=== PATIENT | female | born 1960 | race Caucasian/White ===

== ENCOUNTER → 2016-06-05 | Outpatient (CLI) | payer BC ==
[2016-06-05 19:31] LABS: ALBUMIN/GLOBULIN RATIO 1.38 (1.00-1.93); ALKALINE PHOSPHATASE 107 U/L (45-117); ALT/SGPT 33 U/L (12-78); ANION GAP 6 MEQ/L (8-16); AST/SGOT 15 U/L (15-37); BILIRUBIN,TOTAL 0.4 MG/DL (0.2-1.0); BLOOD UREA NITROGEN 15 MG/DL (7-18); CALCIUM LEVEL 9.5 MG/DL (8.5-10.1); CARBON DIOXIDE LEVEL 27 MEQ/L (21-32); CHLORIDE LEVEL 110 MEQ/L (98-107); CHOLESTEROL LEVEL 172 MG/DL (<200); CREATININE FOR GFR 0.75 MG/DL (0.55-1.02); GLOMERULAR FILTRATION RATE > 60.0 (>51); GLUCOSE, FASTING 101 MG/DL (70-105); POTASSIUM SERUM 4.3 MEQ/L (3.5-5.1); SODIUM LEVEL 143 MEQ/L (136-145); TOTAL PROTEIN 6.9 GM/DL (6.4-8.2); TRIGLYCERIDES LEVEL 109 MG/DL (<150)
[2016-06-05 19:45] LABS: MEAN CORPUSCULAR HGB CONC 34.6 g/dl (32.0-36.5); MEAN CORPUSCULAR VOLUME 89.7 fl (80.0-96.0); RED CELL DISTRIBUTION WIDTH 12.3 % (11.5-14.5); WHITE BLOOD COUNT 6.7 K/mm3 (4.0-10.0)
== END ==
LOC: M WUC 09:44
PROVIDERS: ATTEND Nurse Practitioner Family
DX: I10 Essential (primary) hypertension (principal)

== ENCOUNTER → 2016-09-23 | Outpatient (CLI) | payer BC ==
[~2016-09-23] VITALS: Ht 165.1 cm; Wt 90.7 kg
[~2016-09-23] MED LIST: LIDOCAINE 2% INJ 100 MG/5 ML SDV (FOR ANES.) As Ordered ONE; METO50TA2 PO; NS 1,000 ML IV ONE; OMEP40CA2 PO; PROPOFOL 500 MG/50 ML VIAL As Ordered ONE; SIMV40TA2 PO
--- NOTE | 2016-09-23 12:41 | ROOR ---
Patient Name: Kristal Lara Procedure Date: 09/23/2016 12:23 PM Date of : 1960 Age: 56 Room: [facility] Gender: Female Note Status: Finalized Procedure: Upper GI endoscopy Indications: Heartburn Providers: Rolf VIERA MD Referring MD: Dorothy Parker MD Requesting Provider: Medicines: Monitored Anesthesia Care Complications: No immediate complications. Procedure: Pre-Anesthesia Assessment: - The heart rate, respiratory rate, oxygen saturations, blood pressure, adequacy of pulmonary ventilation, and response to care were monitored throughout the procedure. The Endoscope was introduced through the mouth, and advanced to the second part of duodenum. The upper GI endoscopy was accomplished without difficulty. The patient tolerated the procedure well. Findings: The esophagus and gastroesophageal junction were examined with white light and narrow band imaging (NBI) from a forward view and retroflexed position. There were esophageal mucosal changes suspicious for long-segment Barnard's esophagus. These changes involved the mucosa at the upper extent of the gastric folds (36 cm from the incisors) extending to the Z-line. Circumferential salmon-colored mucosa was present from 30 to 35 cm. The maximum longitudinal extent of these esophageal mucosal changes was 5 cm in length. Mucosa was biopsied with a cold forceps for histology randomly in the lower third of the esophagus and from 30 to 36 cm from the incisors. A total of 4 specimen bottles were sent to pathology. A small hiatal hernia was present. The entire examined stomach was normal. The examined duodenum was normal. Impression: - Esophageal mucosal changes suspicious for long-segment Barnard's esophagus. Biopsied. - Small hiatal hernia. - Normal stomach. - Normal examined duodenum. Recommendation: - Use Prilosec (omeprazole) 40 mg PO BID indefinitely. - Repeat upper endoscopy in 3 years for surveillance. Rolf Viera MD Rolf VIERA MD 09/23/2016 12:41:22 PM This report has been signed electronically. Number of Addenda: 0 Note Initiated On: 09/23/2016 12:23 PM Estimated Blood Loss: Estimated blood loss: none.
--- NOTE | 2016-09-23 13:01 | ROOR ---
Patient Name: Kristal Lara Procedure Date: 09/23/2016 12:24 PM Date of : 1960 Age: 56 Room: [facility] Gender: Female Note Status: Finalized Procedure: Colonoscopy Indications: Screening for colorectal malignant neoplasm Providers: Rolf VIERA MD Referring MD: Dorothy Parker MD Requesting Provider: Medicines: Monitored Anesthesia Care Complications: No immediate complications. Procedure: Pre-Anesthesia Assessment: - The heart rate, respiratory rate, oxygen saturations, blood pressure, adequacy of pulmonary ventilation, and response to care were monitored throughout the procedure. The Colonoscope was introduced through the anus and advanced to the cecum, identified by appendiceal orifice and ileocecal valve. The colonoscopy was performed without difficulty. The patient tolerated the procedure well. The quality of the bowel preparation was good. Findings: The perianal and digital rectal examinations were normal. (Exam: Complete, Prep: Good or Excellent.) A 8 mm polyp was found in the appendiceal orifice. The polyp was carpet-like. The polyp was removed with a piecemeal technique using a cold snare. Polyp resection was incomplete, and the resected tissue was partially retrieved. A 5 mm polyp was found in the cecum. The polyp was sessile. The polyp was removed with a cold snare. Resection and retrieval were complete. Internal hemorrhoids were found during retroflexion. The hemorrhoids were medium-sized. The exam was otherwise without abnormality on direct and retroflexion views. Impression: - One 8 mm polyp at the appendiceal orifice, removed piecemeal using a cold snare. Polyp resection was incomplete, and the resected tissue was partially retrieved. - One 5 mm polyp in the cecum, removed with a cold snare. Resected and retrieved. - Internal hemorrhoids. - The examination was otherwise normal on direct and retroflexion views. Recommendation: - Telephone endoscopist for pathology results in 2 weeks. - If the polyp within the appendiceal orifice is adenomatous (precancerous), then will consider a referral to a surgeon to remove the appendix (along with surrounding cecal floor). If the polyp is hyperplastic (not precancerous), then nothing else needs to be done. Rolf Viera MD Rolf VIERA MD 09/23/2016 1:00:42 PM This report has been signed electronically. Number of Addenda: 0 Note Initiated On: 09/23/2016 12:24 PM Estimated Blood Loss: Estimated blood loss: none.
[2016-09-23 13:15] VITALS: BP 147/90
== END | disposition home or self-care (01) ==
LOC: M OPP 10:45
PROVIDERS: ATTEND Internal Medicine Gastroenterology
DX: Z12.11 Encounter for screening for malignant neoplasm of colon (principal); D12.1 Benign neoplasm of appendix; D12.0 Benign neoplasm of cecum; K64.8 Other hemorrhoids; R12 Heartburn; K22.8 Other specified diseases of esophagus; K44.9 Diaphragmatic hernia without obstruction or gangrene; M19.90 Unspecified osteoarthritis, unspecified site; E78.5 Hyperlipidemia, unspecified; D49.7 Neoplasm of unspecified behavior of endocrine glands and other parts of nervous system; Z78.0 Asymptomatic menopausal state; Z87.891 Personal history of nicotine dependence; Z79.899 Other long term (current) drug therapy

== ENCOUNTER → 2016-11-17 | Outpatient (REF) | payer BC ==
[~2016-11-17] MED LIST changes: -LIDOCAINE 2% INJ 100 MG/5 ML SDV (FOR ANES.) As Ordered ONE; -METO50TA2 PO; +METO50TA7 PO; +NORCOTAB PO; -NS 1,000 ML IV ONE; -PROPOFOL 500 MG/50 ML VIAL As Ordered ONE
[2016-11-17 12:55] LABS: ANION GAP 7 MEQ/L (8-16); BLOOD UREA NITROGEN 16 MG/DL (7-18); CALCIUM LEVEL 10.1 MG/DL (8.5-10.1); CARBON DIOXIDE LEVEL 27 MEQ/L (21-32); CHLORIDE LEVEL 110 MEQ/L (98-107); CREATININE FOR GFR 0.72 MG/DL (0.55-1.02); GLOMERULAR FILTRATION RATE > 60.0 (>51); GLUCOSE, FASTING 90 MG/DL (70-105); SODIUM LEVEL 144 MEQ/L (136-145)
== END ==
LOC: M SFHCPLAZ 10:13
PROVIDERS: ATTEND Family Medicine
DX: I10 Essential (primary) hypertension (principal)

== ENCOUNTER → 2016-11-24 | Outpatient (CLI) | payer BC ==
--- NOTE | 2016-11-24 15:16 | REPMRS ---
Patient History The patient states she has not had a clinical breast exam in over a year. Patient is postmenopausal. No known family history of cancer. Benign cyst aspiration of the left breast, 2006. Digital Woman Screen Mammo: November 24, 2016 - Exam #: [id number] Bilateral CC and MLO view(s) were taken. Technologist: Jacquelyn Becerra, Technologist Prior study comparison: August 07, 2014, bilateral digital mammo screening bilat, performed at [facility]. January 02, 2007, digital woman screen mammo, performed at [facility]. FINDINGS: The breast tissue is heterogeneously dense. This may lower the sensitivity of mammography. There has been no change in the appearance of the mammogram from the prior studies. There is a moderate amount of residual fibroglandular tissue which is fairly symmetric. There is no interval development of dominant mass, areas of architectural distortion, or clustered microcalcification typical of malignancy. ASSESSMENT: BI-RADS/ACR category 1 mammogram. Negative. Recommendation Routine screening mammogram in 1 year (for women over age 40). This mammogram was interpreted with the aid of an FDA-approved computer-aided dectection system. Electronically Signed By: Abel Pérez MD 11/24/16 [id number]
== END ==
LOC: M WHC 13:35
PROVIDERS: ATTEND Family Medicine
DX: Z12.31 Encounter for screening mammogram for malignant neoplasm of breast (principal)

== ENCOUNTER 2016-12-21 14:38 | Day surgery (SDC) | payer BC ==
[~2016-12-21] VITALS: Ht 165.1 cm; Wt 90.7 kg
[2016-12-21] VITALS (7 sets, daily range): BP systolic 117–157; BP diastolic 67–87
[2016-12-21] MEDS: KETOROLAC 30 MG/ML VIAL (J1885) IV SCH ×2 (12:00→17:18)
[2016-12-21] MEDS: LR 1,000 ML IV SCH ×2 (12:00→17:17)
[~2016-12-21 14:38] MED LIST changes: +BUPIVACAINE/EPIN 0.25% 30 ML VIAL As Ordered ONE; +ERTAPENEM SODIUM 1 GM in NS MINI-BAG PLUS 50 ML IV ONE; +HYDROmorphone HCL 1 MG/ML SYRINGE (J1170) IV PRN; +HYDROmorphone HCL 2 MG/ML 1ML VIAL (J1170) As Ordered ONE; +LIDOCAINE 1% MDV 20ML VIAL SQ ONE; +LIDOCAINE 2% INJ 100 MG/5 ML SDV (FOR ANES.) As Ordered ONE; +LR 1,000 ML IV ONE; +LR 1,000 ML IV SCH; +MIDAZOLAM INJ 2 MG/2 ML VIAL (J2250) As Ordered ONE; +MORPHINE 2 MG/ML 1ML SYRINGE IV PRN; +NORCO, ANEXSIA 5/325MG TABLET (HYDROcodone/ACETAMINOPHEN) PO PRN; -NORCOTAB PO; +ONDANSETRON 4MG/2ML VIAL (J2405) IV PRN; +PERCOCET 5MG/325MG TAB As Ordered ONE; +PERCOCET 5MG/325MG TAB PO PRN; +PROPOFOL 200 MG/20 ML VIAL As Ordered ONE; +ROCURONIUM BROMIDE 50 MG/5 ML VIAL/SYRINGE As Ordered ONE; +dexameTHASONE 4 MG/ML 1ML VIAL (J1100) As Ordered ONE; +ePHEDrine SULFATE 25 MG/5 ML(5MG/ML) SYRINGE As Ordered ONE; +fentaNYL 100 MCG/2 ML INJECTION (J3010) IV PRN; +fentaNYL 250 MCG/5 ML INJECTION (J3010) As Ordered ONE
[2016-12-22] VITALS: BP 122/79
[2016-12-22] MEDS: KETOROLAC 30 MG/ML VIAL (J1885) IV SCH ×2 (00:50→06:53)
[2016-12-22 04:00] VITALS: BP 123/69
[2016-12-22 08:00] VITALS: BP 139/69
[2016-12-22] MEDS ORDERED: NORCOTAB PO (09:14)
--- NOTE | 2016-12-22 22:16 | ECGEPIP ---
Stationary ECG Study [facility] Test Date: 2016-12-21 Pat Name: SERGIO REDDY Department: Room: - Gender: F Rivet Sticker: GIOVANNY : 1960 Requested By: JANNETTE CARVALHO Order Number: [id number] Reading MD: Mark Dalton Measurements Intervals [place] Rate: 53 P: 37 IA: 199 QRS: 5 QRSD: 92 T: -7 QT: 409 QTc: 386 Interpretive Statements SINUS BRADYCARDIA NONSPECIFIC T-WAVE ABNORMALITY NO PRIOR TRACING IN THE SYSTEM Electronically Signed On 12-22-2016 22:15:53 EDT by Mark Dalton
--- NOTE | 2017-01-18 05:43 | RO ---
DATE OF PROCEDURE: 12/21/2016 PREOPERATIVE DIAGNOSIS: Adenomatous colonic polyp at the appendiceal orifice. 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 PROCEDURE: Laparoscopic appendectomy/partial cecectomy. SURGEON: Kiko Eason MD CASINO ACCOUNTANT: ANESTHESIA: General endotracheal anesthesia ESTIMATED BLOOD LOSS: Minimal. FLUIDS: Crystalloid. DESCRIPTION OF PROCEDURE: The patient was brought to the operating room and was given general anesthesia. After adequate anesthesia and preoperative antibiotics were given, the patient was prepped and draped in the usual sterile fashion. Next, a supraumbilical incision was made with skin knife. Electrocautery was used cut through dermis, underlying subcutaneous tissue down to the fascia itself, which was grasped with Madan clamps, elevated and a Veress needle placed into the abdominal cavity, insufflated to 15 mm of pressure. The suprapubic and left lower quadrant 5 mm trocars were placed. Once there was some adhesions taken down in this area as well as in the suprapubic area and along the right lateral abdomen, there was some adhesions that needed be taken down near the terminal ileum, and eventually after the terminal ileum was mobilized adequately I could then mobilize the cecum and the cecum was mobilized off the pelvic sidewall and the appendix was well visualized. The entire dissection did not mobilize the entire right colon as a typical right hemicolectomy would be performed given that this was in adenomatous polyp and not a dysplastic polyp and thus, the appendix was taken, first the mesentery of the appendix was taken with Harmonic scalpel all the way down to the base of the appendix taking care to make sure that a good deal of the cecum could be well visualized. Once the ileocecal valve was well visualized and I felt that I could take an adequate margin around the base of a palpable polyp at the base the appendix, at this time what I did was place the polyp on the appendiceal opening side and place a atraumatic grasper underneath the polyp on the cecal side. Taking care to remove that additional portion of the cecum and paralleling the ileocecal valve, I used an [place] green load 60 across the cecum in this area and a second load needed to be used to complete the resection of tissue. The staple line was intact and no bleeding, no leak and overall good margins could be palpated on the lesion itself. This was placed in an EndoCatch bag brought out through the periumbilical site. Next, the right lower quadrant was copiously irrigated until clear. This was evaluated again taking care to make sure that the ileocecal valve seemed to be open in this area and the staple line was closed, yet still off to the side of the ileocecal valve itself. Next, all trocars were removed under direct visualization. #0 Vicryl was used close the periumbilical site with two [id number] Ethibond sutures given that the site needed to be enlarged a little bit to get the appendix out through, and all incisions were closed with #4-0 Vicryl. Steri-Strips and a dry sterile dressing was applied. The patient was awakened, extubated, brought to the recovery room awake, alert, hemodynamically stable. Sponge and needle counts were correct times two.
== END 2016-12-22 10:50 | disposition home or self-care (01) ==
LOC: M PED 14:38 → M SDC 14:38
PROVIDERS: ATTEND Surgery
DX: D12.1 Benign neoplasm of appendix (principal); I10 Essential (primary) hypertension; E78.00 Pure hypercholesterolemia, unspecified; K21.9 Gastro-esophageal reflux disease without esophagitis; Z87.891 Personal history of nicotine dependence; Z79.899 Other long term (current) drug therapy
CPT/HCPCS: 44970; 88302; 93005; 96374; 96376; J1100; J1170; J1335; J1885; J2250; J3010

== ENCOUNTER → 2017-07-19 | Outpatient (REF) | payer BC | LOC: M LAB REF 17:47 | DX: D23.11 Other benign neoplasm of skin of right eyelid, including canthus (principal) | CPT/HCPCS: 88304 ==